=== PATIENT | female | born 1995 | race African-American/Black ===

== ENCOUNTER 2020-03-05 09:20 | Day surgery (SDC) | payer MEDICARE, MEDICAID ==
[2020-03-04 11:26] LABS: HEMOGLOBIN 8.9 g/dL (12.0-15.5); MEAN CORPUSCULAR HEMOGLOBIN 33.1 pg (27.0-33.4); MEAN CORPUSCULAR HGB CONC 35.9 g/dL (32.0-36.0); MEAN CORPUSCULAR VOLUME 92 fl (80-97); PLATELET COUNT 452 10^3/uL (150-450); RED CELL DISTRIBUTION WIDTH 18.8 % (11.5-14.0); WHITE BLOOD COUNT 12.6 10^3/uL (4.0-10.5)
[2020-03-04 11:37] LABS: POTASSIUM 4.8 mmol/L (3.6-5.0)
[2020-03-04 12:12] LABS: ABSOLUTE LYMPHOCYTES# (MANUAL) 3.3 10^3/uL (0.5-4.7); ABSOLUTE MONOCYTES # (MANUAL) 1.1 10^3/uL (0.1-1.4); BASOPHILS % (MANUAL) 0 % (0-2); EOSINOPHILS % (MANUAL) 2 % (0-6); LYMPHOCYTES % (MANUAL) 26 % (13-45); METAMYELOCYTES % (MANUAL) 1 % (0-1); MONOCYTES % (MANUAL) 9 % (3-13); SEGMENTED NEUTROPHILS % (MAN) 62 % (42-78); TOTAL CELLS COUNTED 100
[2020-03-04 12:16] LABS: ANISOCYTOSIS 2+
[2020-03-04 12:25] LABS: POIKILOCYTOSIS 2+; POLYCHROMASIA 1+
[2020-03-04 12:26] LABS: OVALOCYTES 2+; SCHISTOCYTES 1+; SICKLE RED CELLS 1+
[2020-03-04 12:27] LABS: HOWELL-JOLLY BODIES PRESENT; PAPPENHEIMER BODIES PRESENT; TARGET CELLS 2+; TEAR DROP CELLS 1+
[2020-03-04 13:34] LABS: PLATELET COMMENT INCREASED
[2020-03-04 13:36] LABS: STOMATOCYTES SLIGHT
[~2020-03-05 09:20] MED LIST: ACETAMINOPHEN 325 MG TABLET PO PRN; CEFAZOLIN SODIUM 2 GM in DEXTROSE 5%-WATER 100 ML IV PRN; LACTATED RINGERS 1000 ML IV PRN; LIDOCAINE 0.5% INJ-PF (5 MG/ML) 50 ML SDV SUBCUT PRN; OXYCODONE HCL SR 10 MG TABLET PO PRN
[2020-03-05] MEDS ORDERED: MIDAZOLAM 2 MG/2 ML INJ ONE ×2 (10:30→10:43)
[2020-03-05] MEDS ORDERED: MIDAZOLAM 2 MG/2 ML INJ IV PRN (10:32)
[2020-03-05] MEDS ORDERED: PROPOFOL INJ 200 MG/20 ML VIAL IV ONE (10:43)
[2020-03-05] MEDS ORDERED: HYDROMORPHONE HCL INJ/PF 2 MG/ML AMPULE ONE (10:43)
[2020-03-05] MEDS ORDERED: ONDANSETRON HCL INJ/PF 4 MG/2 ML SDV IV PRN (11:09)
[2020-03-05] MEDS ORDERED: MEPERIDINE HCL/PF INJ 25 MG/1 ML DISP.SYRIN IV PRN (11:09)
[2020-03-05] MEDS ORDERED: DIPHENHYDRAMINE HCL 50 MG/ML VIAL IV PRN (11:09)
[2020-03-05] MEDS ORDERED: PROMETHAZINE HCL INJ 25 MG/1 ML VIAL IV PRN ×2 (11:09)
[2020-03-05] MEDS ORDERED: FENTANYL CITRATE INJ/PF 100 MCG/2 ML AMPUL IV PRN ×3 (11:09)
[2020-03-05] MEDS ORDERED: OXYCODONE-ACETAMINOPHEN 5-325 MG TABLET PO PRN ×2 (11:09)
[2020-03-05] MEDS ORDERED: BUPIVACAINE HCL 0.5%-EPI 1:200000 INJ/PF 30 ML VIAL ONE (12:24)
[2020-03-05] MEDS ORDERED: LIDOCAINE 2% INJ (20 MG/ML) 20 ML MDV ONE (12:24)
[2020-03-05] MEDS ORDERED: ONDANSETRON HCL INJ/PF 4 MG/2 ML SDV ONE (13:51)
[2020-03-05] MEDS ORDERED: METOCLOPRAMIDE HCL INJ/PF 10 MG/2 ML SDV ONE (13:51)
[2020-03-05] MEDS ORDERED: LIDOCAINE 2% INJ-PF (20 MG/ML) 2 ML AMPUL ONE (13:51)
[2020-03-05] MEDS ORDERED: DEXAMETHASONE SOD PHOSPHATE INJ 4 MG/1 ML VIAL ONE (13:51)
--- NOTE | 2020-03-05 14:01 | Operative Report ---
Operative Report DATE OF SURGERY: 03/05/20 PREOPERATIVE DIAGNOSIS: Bilateral hip avascular necrosis, pre-collapse POSTOPERATIVE DIAGNOSIS: Bilateral hip avascular necrosis, pre-collapse. OPERATION: Bilateral hip core decompression with bone marrow aspirate autograft. SURGEON: BUNNY GAN JR ANESTHESIA: LMAC TISSUE REMOVED OR ALTERED: Right hip specimen sent to pathology. Unable to obtain reamings on the left hip. COMPLICATIONS: None ESTIMATED BLOOD LOSS: 5 cc PROCEDURE: Patient was brought to the operating suite and laid supine on the operating table. 2 g Ancef were provided. They underwent LMAC anesthesia. Both lower extremities were prepped and draped in standard sterile fashion then a timeout was performed. Local anesthetic was provided to the right iliac crest followed by a small stab incision approximately 4 cm posterior to the ASIS. Bone marrow aspirate was obtained via a Momspot bone marrow aspirate needle. We obtained nearly 80 cc. Following this local anesthesia was provided to the right hip. A small stab incision was made followed by blunt dissection with a long hemostat to the bone. Under fluoroscopy a 4.3 mm drill was introduced. This was done very carefully to ensure no chondral penetration. 3 passes were made in order to gain adequate decompression of the subchondral bone of the weightbearing surface of the femoral head. Reamings from the femoral head were sent for pathology. After appropriate decompression the 4.2 mm cannula was introduced and 40 cc of bone marrow aspirate was injected between 2 of the tracts. The wounds on the right side of the leg were then irrigated with sterile saline followed by subcutaneous 2-0 Monocryl sutures. Then turned our attention to the left hip where we provided local anesthetic from the anticipated soft tissue tract to bone. After this a small stab incision was made followed by blunt dissection with a long hemostat. We then introduced a 4.3 mm drill again in 3 tracks focusing on the superior weightbearing surface of the femoral head and based on MRI images of the site of avascular necrosis. Again this was performed with careful fluoroscopy in order to ensure there was no cortical perforation. Upon removing the drill bit, there was no specimen sent for pathology. We proceeded with insertion of the 4.2 mm cannula and injection into 2 separate tracts the remaining 40 cc of bone marrow aspirate. The surgical site was then irrigated with saline and an inverted simple 2-0 Monocryl stitch was placed in the stab incision. Sterile dressings were placed on the wounds the patient was awakened from anesthesia and sent to the PACU in stable condition.
--- NOTE | 2020-03-05 14:41 | RADIOLOGY REPORT (SQ) ---
EXAM DESCRIPTION: HIP BILATERAL; NO CHG FLUORO IMAGES COMPLETED DATE/TIME: 03/05/2020 2:14 pm REASON FOR STUDY: BILATERAL HIPS CORE DECOMPRESSION ASSISTED WITH FLUORO IN OR M87.859 OTHER OSTEON ECROSIS, UNSPECIFIED FEMUR COMPARISON: None. FLUOROSCOPY TIME: 2.1 minutes. 15 images saved to PACS. TECHNIQUE: Intra-operative images acquired during surgical procedure to evaluate progress. NUMBER OF IMAGES: 15 images. LIMITATIONS: None. FINDINGS: Images of both hips acquired during the procedure. IMPRESSION: IMAGE(S) OBTAINED DURING PROCEDURE. COMMENT: Quality ID [id number]: Final reports for procedures using fluoroscopy that document radiation exp osure indices, or exposure time and number of fluorographic images (if radiation exposure indices are not available) Please consult full operative report of the attending physician for description of the procedure. TECHNICAL DOCUMENTATION: JOB ID: [id number] 2010 [employer]- All Rights Reserved Reading location - IP/workstation name: [email or web address]
--- NOTE | 2020-03-05 14:41 | RADIOLOGY REPORT (SQ) ---
EXAM DESCRIPTION: HIP BILATERAL; NO CHG FLUORO IMAGES COMPLETED DATE/TIME: 03/05/2020 2:14 pm REASON FOR STUDY: BILATERAL HIPS CORE DECOMPRESSION ASSISTED WITH FLUORO IN OR M87.859 OTHER OSTEON ECROSIS, UNSPECIFIED FEMUR COMPARISON: None. FLUOROSCOPY TIME: 2.1 minutes. 15 images saved to PACS. TECHNIQUE: Intra-operative images acquired during surgical procedure to evaluate progress. NUMBER OF IMAGES: 15 images. LIMITATIONS: None. FINDINGS: Images of both hips acquired during the procedure. IMPRESSION: IMAGE(S) OBTAINED DURING PROCEDURE. COMMENT: Quality ID [id number]: Final reports for procedures using fluoroscopy that document radiation exp osure indices, or exposure time and number of fluorographic images (if radiation exposure indices are not available) Please consult full operative report of the attending physician for description of the procedure. TECHNICAL DOCUMENTATION: JOB ID: [id number] 2010 [employer]- All Rights Reserved Reading location - IP/workstation name: [email or web address]
[2020-03-05] MEDS ORDERED: ACETAMINOPHEN 325 MG TABLET ONE (17:42)
[2020-03-05] MEDS ORDERED: TRAMADOL HCL 50 MG TABLET ONE (17:43)
[2020-03-05] MEDS ORDERED: ACETAMINOPHEN 325 MG TABLET PO ONE (18:00)
[2020-03-05] MEDS ORDERED: TRAMADOL HCL 50 MG TABLET PO ONE (18:00)
[2020-03-05 18:13] VITALS: BP 114/73
--- NOTE | 2020-03-06 15:08 | Discharge Summary ---
Discharge Summary (SDC) - Discharge Final Diagnosis: Bilateral hip avascular necrosis Date of Surgery: 03/05/20 Discharge Date: 03/05/20 Condition: Stable Forms: ASU Anesthesia D/C Instruction, Discharge POC-Surgical Service Treatment or Instructions: MONITOR FOR SIGNS OF INFECTION, FEVER OF 101F OR GREATER, REDNESS, GREEN OR YELLOW DRAINAGE, MONITOR FOR BLEEDING, NUMBNESS, INCREASED PAIN WITHOUT RELIEF, CHANGE BANDAIDS NEEDED, REST AND USE CRUTCHES NEEDED Referrals: BUNNY GAN JR, DO [ACTIVE PROVISIONAL STAFF] - 03/15/20 12:45 pm Discharge Diet: As Tolerated Respiratory Treatments at Home: Deep Breathing/Coughing Discharge Activity: Activity As Tolerated, Balance Activity w/Rest, No Driving, No Lifting/Push/Pulling, Supervised Activity, Walk Frequently Home Care Assistance: Provided by Family Adaptive Devices on Discharge: Axillary Crutches Report the Following to Your Physician Immediately: Shortness of Breath, Nausea, Increase in Pain, Fever over 101 Degrees, Unusual Bleeding, Redness, Swelling, Warmth, Increased Soreness, Drainage-Yellow, Drainage-Montero, Drainage-Green, Drainage-Foul Smelling, Numbness, Tingling Sensation
== END 2020-03-05 18:40 | disposition home or self-care (01) ==
LOC: OROUT 09:20
PROVIDERS: ATTEND Orthopaedic Surgery
DX: M87.851 Other osteonecrosis, right femur (principal); M87.852 Other osteonecrosis, left femur; D57.1 Sickle-cell disease without crisis; Z79.899 Other long term (current) drug therapy
CPT/HCPCS: 27299; 36415; 80051; 85025; 81025; 73522; A9270 ×2; J2250; J3490 ×3; J0690; J1100; J2765; J1170; J2405; J7060; J2704; 1210